=== PATIENT | male | born 1965 | race Caucasian/White ===

== ENCOUNTER 2018-01-27 05:46 | Day surgery (SDC) | payer BC ==
[2018-01-27] VITALS (9 sets, daily range): BP systolic 109–156; BP diastolic 72–97
[~2018-01-27] VITALS: Ht 177.8 cm; Wt 73.5 kg
[2018-01-27] MEDS ORDERED: ceFAZolin 1gm in D5W 55ml IVP ONE (06:00)
[2018-01-27] MEDS ORDERED: celeBREX 200mg Cap **SURGERY PATIENTS ONLY ORAL SCH (06:00)
[2018-01-27] MEDS ORDERED: oxyCONTIN 20mg tab ORAL SCH (06:00)
[2018-01-27] MEDS ORDERED: Ropivacaine 5mg/ml Vial 30ml INJ ONE (06:24)
[2018-01-27] MEDS ORDERED: NKM (06:37)
[2018-01-27] MEDS ORDERED: Propofol 200mg/20ml IV ONE (06:44)
[2018-01-27] MEDS ORDERED: Lidocaine 1% MPF 10mg/ml 5ml ONE (06:44)
--- NOTE | 2018-01-27 06:53 | Pre-Procedure Note/Attestation ---
Pre-Procedure Note/Attestation Complete Prior to Procedure Planned Procedure: right Procedure Narrative: rt knee scope, resection of loose fragment, chondroplasty and possible meniscectomy Indications for Procedure Pre-Operative Diagnosis: rt knee loose fragments Attestation I attest that I discussed the nature of the procedure; its benefits; risks and complications; and alternatives (and the risks and benefits of such alternatives ), prior to the procedure, with the patient (or the patient's legal provider relations representative). I attest that, if there was a reasonable possibility of needing a blood transfusion, the patient (or the patient's legal provider relations representative) was given the [facility] standardized written summary, pursuant to the Ger Izzy Blood Safety Act ([place] Health and Safety Code # 1645, as amended). I attest that I re-evaluated the patient just prior to the surgery and that there has been no change in the patient's H&P, except as documented below: none Costa Lundy MD Jan 27, 2018 06:53
[2018-01-27] MEDS ORDERED: Midazolam 2mg/2ml Inj ONE (06:54)
[2018-01-27] MEDS ORDERED: fentaNYL 100 mcg/2 mL IV ONE (06:54)
[2018-01-27] MEDS ORDERED: NS Irrig 1000ml ONE (07:00)
[2018-01-27] MEDS ORDERED: Sterile Water Irrig 1000ml IRRIG ONE (07:00)
[2018-01-27] MEDS ORDERED: NS Irrig 4000ml IRRIG ONE (07:00)
[2018-01-27] MEDS ORDERED: Dexamethasone 4mg/ml vial ONE (07:06)
[2018-01-27] MEDS ORDERED: Ketorolac 30mg Inj ONE (07:06)
[2018-01-27] MEDS ORDERED: LR 1000ml 1,000 ML IVLG SCH (07:28)
--- NOTE | 2018-01-27 07:28 | Anethesia Preoperative Eval ---
Anesthesia Pre-op PMH/ROS General Date of Evaluation: Jan 27, 2018 Time of Evaluation: 06:55 Anesthesiologist: ASA Score: ASA 2 Mallampati Score Class I : Soft palate, uvula, fauces, pillars visible Class II: Soft palate, uvula, fauces visible Class III: Soft palate, base of uvula visible Class IV: Only hard plate visible Mallampati Classification: Class II Surgeon: martinez Diagnosis: right knee loose fragments Surgical Procedure: right knee arthroscopy Anesthesia History: none Family History: no anesthesia problems Allergies: Coded Allergies: No Known Allergies (Unverified , 01/23/18) Medications: see eMAR Past Medical History Cardiovascular: Denies: HTN, CAD, [place], valve dz, arrhythmia, other Pulmonary: Denies: asthma, COPD, AMIE, other Gastrointestinal/Genitourinary: Denies: GERD, CRI, ESRD, other Neurologic/Psychiatric: Denies: dementia, CVA, depression/anxiety, TIA, other Endocrine: Denies: DM, hypothyroidism, steroids, other HEENT: Denies: cataract (L), cataract (R), glaucoma, [place] (L), [place] (R), other Hematology/Immune: Denies: anemia, DVT, bleeding disorder, other Musculoskeletal/Integumentary: Reports: other - right knee loose fragments; Denies: OA, RA, DJD, DDD, edema PSxH Narrative: shoulder, knee surgeries Anesthesia Pre-op Phys. Exam Physician Exam Last Vital Signs Date Time Temp Pulse Resp B/P (MAP) Pulse Ox O2 Delivery O2 Flow Rate FiO2 01/27/18 06:54 Room Air Room Air 01/27/18 06:28 98.6 62 18 109/72 (84) 98 98.6 Constitutional: NAD Cardiovascular: RRR Respiratory: CTA Gastrointestinal: S/NT/ND Airway Exam Mallampati Score: Class II MO: full ROM: full Teeth: intact Dentures: no upper, no lower Anesthesia Pre-op A/P Risk Assessment & Plan Assessment: asa 2 Plan: GA, Status Change Before Surgery: No Pre-Antibiotics Drug: ancef 2 grams Given Within 1 Hr of Incision: Yes Time Given: 07:05 Savannah Mayo M.D. Jan 27, 2018 07:28
[2018-01-27] MEDS ORDERED: fentaNYL 100 mcg/2 mL IV PRN (07:30)
[2018-01-27] MEDS ORDERED: Labetalol 5mg/ml 20ml vial IV PRN (07:30)
[2018-01-27] MEDS ORDERED: Tylenol #3 tab (300mg/30mg) ORAL PRN (07:30)
[2018-01-27] MEDS ORDERED: Midazolam 2mg/2ml Inj IVP PRN (07:30)
[2018-01-27] MEDS ORDERED: DiphenhydrAMINE 50mg/ml Inj IVP PRN (07:30)
[2018-01-27] MEDS ORDERED: Morphine Sulfate 2mg/ml Inj IVP PRN (07:30)
[2018-01-27] MEDS ORDERED: D5 1/2NS 1,000 ML IV SCH (07:30)
[2018-01-27] MEDS ORDERED: Norco 5mg/325mg tab ORAL PRN (07:30)
[2018-01-27] MEDS ORDERED: Hydromorphone 0.5mg/0.5ml inj IVP PRN (07:30)
--- NOTE | 2018-01-27 07:34 | Immediate Post-Op Evaluation ---
Immediate Post-Op Evalulation Immediate Post-Op Evalulation Procedure: right knee arthoscopy removal loose fragments Date of Evaluation: Jan 27, 2018 Time of Evaluation: 08:18 IV Fluids: 500ml Blood Products: 0 Estimated Blood Loss: 0 Urinary Output: 0 Blood Pressure Systolic: 156 Blood Pressure Diastolic: 97 Pulse Rate: 70 Respiratory Rate: 11 O2 Sat by Pulse Oximetry: 100 Temperature (Fahrenheit): 97 Pain Score (1-10): 0 Nausea: No Vomiting: No Complications none Patient Status: awake, patent, none Hydration Status: adequate Drug: ancef 2 grams Given Within 1 Hr of Incision: Yes Time Given: 07:05 Savannah Mayo M.D. Jan 27, 2018 07:34
--- NOTE | 2018-01-27 08:16 | Brief Operative Note ---
Immediate Post Operative Note Operative Note Chief Complaint: rt knee pain Pre-op Diagnosis: rt knee loose fragments Procedure: rt knee scope, resection of loose fragments, medial meniscectomy Post-op Diagnosis: same as pre-op Findings: consistent w/pre-op dx studies Surgeon: md martinez Sharepoint Engineer: jasmyn cuellar Anesthesiologist: md bobby Anesthesia: general Specimen: yes Complications: none Condition: stable Fluids: ns Estimated Blood Loss: minimal Drains: none Implant(s) used?: No Sindhu Cuellar Jan 27, 2018 08:16
--- NOTE | 2018-01-27 09:00 | 48 Hour Post Anesthesia Eval ---
Post Anesthesia Evaluation Procedure: right knee arthoscopy removal loose fragments Date of Evaluation: Jan 27, 2018 Time of Evaluation: 08:44 Blood Pressure Systolic: 149 0: 87 Pulse Rate: 53 Respiratory Rate: 18 Temperature (Fahrenheit): 97 O2 Sat by Pulse Oximetry: 100 Airway: patent Nausea: No Vomiting: No Pain Intensity: 0 Hydration Status: adequate Mental Status/LOC: patient returned to baseline Post-Anesthesia Complications: NONE Follow-up care needed: ready to discharge Savannah Mayo M.D. Jan 27, 2018 09:00
--- NOTE | 2018-01-27 10:00 | Operative Note - Dictated ---
DATE OF OPERATION: 01/27/2018 PREOPERATIVE DIAGNOSES: 1. Right knee multiple loose fragments. 2. Right knee meniscus tear. 3. Right knee arthritis. POSTOPERATIVE DIAGNOSES: 1. Right knee two large loose fragments, one measuring 3 x 2 cm in the suprapatellar pouch and the second one measuring 2 x 2.5 cm in the posterior compartment of the knee. 2. Right knee lateral meniscus tear involving posterior horn and body involving 20% of lateral meniscus. 3. Right knee history of previous meniscectomy with recurrent tear of the posterior horn and body of the medial meniscus involving 30% of medial meniscus. 4. Right knee medial compartment arthritis, grade 4, on the femur and the tibia measuring area of 2 x 2 cm with a kissing lesion. PROCEDURE: 1. Right knee arthroscopy and extensive intra-articular shaving. 2. Resection of multiple loose fragments, one measuring 3 x 2 cm and another one measuring 2.5 x 2 cm. 3. Right knee partial lateral meniscectomy. 4. Right knee partial medial meniscectomy. SURGEON: Costa Lundy M.D. INSURANCE VERIFICATION REP: Sindhu Swenson PA-C. [employer] was present during the actual operative portion of the case and was important and essential part of the operation. During the operation, the assistant site manager held and operated the arthroscopic camera for visualization, assisted by manipulating the leg to help with visualization, and helped with essential parts of the repair process as necessary such as operating surgical instruments under surgeon supervision, suture management, and wound closures. ANESTHESIOLOGIST: Dr. Mayo. ANESTHESIA: General LMA anesthesia. ESTIMATED BLOOD LOSS: Less than 20 mL. TOURNIQUET TIME: 35 minutes. COMPLICATIONS: None. SURGICAL INDICATION: The patient is a 52-year-old male who sustained the above injury to his knee. The patient was treated non-operative initially, but this did not alleviate the patients symptoms. Therefore, after discussing all non-surgical and surgical options, and discussing all foreseeable risk and benefits of surgery, the patient opted for surgical treatment as described above. PATIENT POSITIONING: The patient was brought to the operating room table and placed supine. All pressure points were well padded. General anesthesia was induced and a well-padded tourniquet was placed on the thigh. The lateral post was placed and positioned to allow for opening of the medial compartment of the knee without placing pressure over the fibular head. The patients entire leg was prepped and draped in the usual sterile fashion. Time-out was performed and preop antibiotic was given and after exsanguinating the lower extremity, the tourniquet was inflated to 275 mmHg. EXAMINATION OF THE KNEE UNDER ANESTHESIA: Before prepping and draping the knee and while the patient was relaxed under general anesthesia, the knee was examined for ROM, and anterior and posterior, medial and lateral, posterolateral, and posteromedial instability. Pivot-shift testing was performed. There was no evidence of loss of motion or instability and the pivot shift testing was negative. PORTAL PLACEMENT: The lateral portal was placed with the knee flexed to 90 degrees at the level of inferior border of the patella in line with the lateral border of the patella. A 0.5-cm skin incision was made with an #11 blade and using a blunt obturator, the capsule was gently penetrated. Sterile saline solution was then infused inside the knee with the aid of a pump set at 35 mmHg pressure. Under direct visualization, placement of the medial portal was preliminarily judged using a spinal needle and it was subsequently established using the same technique as the lateral portal. Care was given not to injure the cutaneous branches of the medial saphenous nerve or the subcutaneous veins. DIAGNOSTIC ARTHROSCOPY: The suprapatellar pouch was visualized. There was a large loose fragment in the suprapatellar pouch and in the lateral gutter. This measured 3 x 2 cm once it was removed. The medial and lateral patellar facets and trochlear groove articular cartilage was visualized. There was some mild chondral damage of the trochlea as well as underneath the patella. The medial plica shelf and the corresponding medial femoral condyle articular cartilage were visualized. There was no significantly thickening of the medial plica shelf and there were no kissing? lesion over the medial femoral condyle. The lateral gutter and the posterolateral corner of the knee were visualized. There was the same loose body that was seen in the suprapatellar pouch once in the lateral gutter, however, the popliteus was intact. At this point, the knee was placed in the [id number] position and the lateral compartment was entered. The lateral femoral condyle, lateral tibial plateau, and the anterior, body, and the posterior horn of the lateral meniscus were visualized and probed. The articular surfaces were intact and devoid of articular cartilage damage. There was a free edge of the posterior horn and body of lateral meniscus involving 20% of lateral meniscus. The knee was then placed at 90 degrees and the ACL and PCL were visualized and probed. The ACL was completely intact on visualization and probing, and it had excellent tension. The PCL was completely intact on visualization and probing and it had excellent tension. The medial compartment was then entered and the medial femoral condyle, medial tibial plateau, and the anterior body, and the posterior horn of the medial meniscus were visualized and probed. There was extensive chondral damage over the medial femoral condyle and medial tibial plateau measuring 2 x 2 cm. This was grade 4 chondromalacia. There was evidence of previous meniscectomy although there was recurrent tear of the posterior horn and body of medial meniscus involving 30% of medial meniscus. The medial gutter was visualized. There was no evidence of defect or loose fragments. The scope was then brought back to the patellofemoral compartment. At this point, the scope was placed through the notch around the ACL into the posterior compartment. The posterior compartment was visualized. There was a large 2 x 2.5 cm loose fragment in the posterior compartment. At this point, accessory posteromedial portal was established under direct visualization for removal of the posterior loose fragment. OPERATIVE ARTHROSCOPY: At this point, all loose debris and fragments were removed with the use of suction motorized shaver. Specific attention was given to assure all visible loose fragments were irrigated out of the knee joint with pump inflow and cannula outflow system. The loose fragments were identified and visualized. Using combination of the shaver, suction, and graspers, these loose fragments were removed. These loose fragments measured approximately one measuring 2.5 cm x 2 cm, and another 3 cm x 2 cm. All debris left behind was removed with combination of dakota and graspers. At this point, attention was given to the lateral meniscus. Using combination of baskets and dakota, the torn portion of the lateral meniscus was removed. Attention was given to remove all displaced and unstable portion of the lateral meniscus while maintaining as much of the functional portion of the meniscus as possible. Approximately, 20% of the posterior horn and body of the meniscus was removed in this fashion. The transition between the meniscectomy portion and intact portion of the meniscus was smoothed out with combination of small baskets and dakota. Excellent transition zone was obtained in this fashion. At this point, attention was given to the medial meniscus. Using combination of baskets and dakota, the torn portion of the medial meniscus was removed. Attention was given to remove all displaced and unstable portion of the medial meniscus while maintaining as much of the functional portion of the meniscus as possible. Approximately, 30% of the posterior horn and body of the medial meniscus was removed in this fashion. The transition between the meniscectomy portion and intact portion of the meniscus was smoothed out with combination of small baskets and dakota. Excellent transition zone was obtained in this fashion. Care was given to the area of cartilage damage in the medial compartment. The frayed and loose fragments of articular cartilage were debrided using a motorized shaver. Suction was used to pull in the loose fragments and flaps of the cartilage and to minimize damage to the intact and well-attached portion of the cartilage. This allowed for smooth surfaces for the articular cartilage. CONDITION AT DISCHARGE FROM OPERATING ROOM: The knee was irrigated with copious amount of normal saline at the end of the procedure. The scope was removed and the water was drained. The skin edges were re-approximated and sterile dressing was applied. All lap count and instrument counts were correct. The patient tolerated the procedure well without complications and was taken to the recovery room in stable conditions. Costa Lundy M.D. DR: Don JOB#: [id number] CC:
== END 2018-01-27 10:00 | disposition home or self-care (01) ==
LOC: SUR 05:46
DX: M23.221 Derangement of posterior horn of medial meniscus due to old tear or injury, right knee (principal)
CPT/HCPCS: 29880; J0690; J1100; J1885; J2250; J2405; J2704; J2795; J3010; 94003; 94150